=== PATIENT | male | born 1970 | race Caucasian/White ===

== ENCOUNTER 2016-12-21 13:10 | Emergency (ER) | payer MEDICAID ==
[~2016-12-21] VITALS: Ht 172.7 cm; Wt 82.0 kg
[2016-12-21 14:04] LABS: CHLORIDE 110 mEq/L (98-107)
[2016-12-21 14:12] LABS: BASOPHILS % 0.6 % (0.0-2.0); EOSINOPHILS % 1.1 % (0.0-5.0); HEMATOCRIT. 38.4 % (42.0-52.0); HEMOGLOBIN. 12.7 g/dL (14.0-18.0); LYMPHOCYTES % 44.2 % (20.0-50.0); MEAN CORPUSCULAR HEMOGLOBIN 26.7 pg (28.0-32.0); MEAN CORPUSCULAR VOLUME 80.8 fL (80.0-94.0); MEAN PLATELET VOLUME 8.5 fl (7.4-10.4); NEUTROPHILS % 46.1 % (40.0-76.0); PLATELET 214 x1000/uL (130-400); RED BLOOD CELL COUNT 4.75 mill/uL (4.7-6.1); RED CELL DISTRIBUTION WIDTH 18.9 % (11.6-14.6)
[2016-12-21 14:13] LABS: CARBON DIOXIDE 24 mEq/L (21-32)
[2016-12-21] MEDS ORDERED: MORPHINE SULFATE 4 MG/ML CPJ (NOT FOR IM USE) IV STA (14:54)
[2016-12-21] MEDS ORDERED: ONDANSETRON HCL 4MG/2ML VIAL IV STA (14:54)
[2016-12-21] MEDS ORDERED: KETOROLAC 30MG/ML VIAL IV STA (14:54)
[2016-12-21] MEDS ORDERED: SODIUM CHLORIDE 0.9% 1,000 ML IV ONE (14:54)
[2016-12-21 15:30] LABS: D-DIMER 0.39 mg/L FEU (<0.50); INR 1.1; PROTHROMBIN TIME 11.4 sec (9.4-11.6)
[2016-12-21 15:38] LABS: CARBON DIOXIDE 24 mEq/L (21-32); CHLORIDE 110 mEq/L (98-107); CREATINE KINASE 147 IU/L (39-308); TROPONIN I < 0.02 ng/mL (0.00-0.04)
[2016-12-21 15:39] LABS: CLARITY URINE CLEAR (CLEAR); COLOR URINE YELLOW (YELLOW); GLUCOSE URINE NEGATIVE (NEGATIVE); KETONES URINE NEGATIVE (NEGATIVE); LEUKOCYTE ESTERASE URINE NEGATIVE (NEGATIVE); NITRITE URINE NEGATIVE (NEGATIVE); OCCULT BLOOD URINE NEGATIVE (NEGATIVE); PROTEIN URINE NEGATIVE (NEGATIVE); SPECIFIC GRAVITY URINE 1.008 (1.005-1.030); UROBILINOGEN URINE 0.2 E.U./dL (0.2-1.0)
[2016-12-21 15:49] LABS: ETHANOL BLOOD 368 mg/dL
[2016-12-21 15:50] LABS: *AMPHETAMINES SCREEN URINE NEGATIVE (NEGATIVE); *BARBITURATES SCREEN URINE NEGATIVE (NEGATIVE); *BENZODIAZEPINES SCREEN URINE NEGATIVE (NEGATIVE); *COCAINE SCREEN URINE NEGATIVE (NEGATIVE); CANNABINOID URINE SCREEN NEGATIVE (NEGATIVE); METHADONE URINE SCREEN NEGATIVE (NEGATIVE); OPIATES URINE SCREEN NEGATIVE (NEGATIVE); PHENCYCLIDINE URINE SCREEN NEGATIVE (NEGATIVE)
[2016-12-22 13:56] VITALS: BP 120/82
== END 2016-12-22 14:35 | disposition home or self-care (01) ==
LOC: EDBD 13:10 → ER 13:10
DX: G93.40 Encephalopathy, unspecified (principal); T51.91XA Toxic effect of unspecified alcohol, accidental (unintentional), initial encounter; S09.90XA Unspecified injury of head, initial encounter; Y08.89XA Assault by other specified means, initial encounter; Y93.89 Activity, other specified; Y99.8 Other external cause status; Y92.89 Other specified places as the place of occurrence of the external cause
CPT/HCPCS: 36415; 70450; 71010; 72125; 80053; 80305; 81003; 82550; 82962; 83605; 83880; 84443; 84484; 85025; 85379; 85610; 93005; 96361; 96374; 96375; 99285; G0482; J1885; J2405; J7030; Z7610; J2270

== ENCOUNTER 2017-01-16 18:26 | Inpatient (IN) | payer MEDICAID ==
[~2017-01-16] VITALS: Ht 167.6 cm; Wt 89.9 kg
[2017-01-16] MEDS ORDERED: OCTREOTIDE ACETATE 50 MCG/ML 1ML IV STA (19:36)
[2017-01-16] MEDS ORDERED: SODIUM CHLORIDE 0.9% 1,000 ML IV ONE ×2 (19:36→23:16)
[2017-01-16] MEDS ORDERED: PANTOPRAZOLE SODIUM 40 MG/VIAL IV STA (19:36)
[2017-01-16] MEDS ORDERED: ONDANSETRON HCL 4MG/2ML VIAL IV STA (19:36)
[2017-01-16] MEDS ORDERED: MORPHINE SULFATE 4 MG/ML CPJ (NOT FOR IM USE) IV STA (19:36)
[2017-01-16] MEDS ORDERED: PANTOPRAZOLE 80 MG in SODIUM CHLORIDE 0.9% 80 ML IV ONE (19:45)
[2017-01-16] MEDS ORDERED: OCTREOTIDE 1,000 MCG in SODIUM CHLORIDE 0.9% 100 ML IV ONE (19:45)
[2017-01-16] MEDS ORDERED: PANTOPRAZOLE SODIUM 40 MG/VIAL IV ONE (20:02)
[2017-01-16] MEDS ORDERED: OCTREOTIDE 1,000 MCG in SODIUM CHLORIDE 0.9% 100 ML IV NR (20:30)
[2017-01-16 20:41] LABS: BASOPHILS % 0.6 % (0.0-2.0); HEMATOCRIT. 23.2 % (42.0-52.0); HEMOGLOBIN. 7.6 g/dL (14.0-18.0); LYMPHOCYTES % 23.3 % (20.0-50.0); MEAN CORPUSCULAR HEMOGLOBIN 27.1 pg (28.0-32.0); MEAN CORPUSCULAR VOLUME 82.9 fL (80.0-94.0); MEAN PLATELET VOLUME 9.6 fl (7.4-10.4); MONOCYTES % 10.2 % (2.0-8.0); NEUTROPHILS % 65.9 % (40.0-76.0); PLATELET 55 x1000/uL (130-400); RED CELL DISTRIBUTION WIDTH 22.1 % (11.6-14.6)
[2017-01-16 20:48] LABS: INR 1.3; PROTHROMBIN TIME 13.4 sec (9.4-11.6)
[2017-01-16 20:52] LABS: CARBON DIOXIDE 25 mEq/L (21-32); CHLORIDE 100 mEq/L (98-107); ETHANOL BLOOD < 10 mg/dL
[2017-01-16 20:56] LABS: CREATINE KINASE 259 IU/L (39-308); TROPONIN I 0.02 ng/mL (0.00-0.04)
[2017-01-16 21:01] LABS: AMMONIA 83 uMol/L (<32)
[2017-01-16 21:16] LABS: PLATELET ESTIMATE MARKEDLY DECREASED
[2017-01-16] MEDS ORDERED: FOLIC ACID 1 MG, THIAMINE HCL 100 MG, MVI, ADULT NO.1 10 ML in DEXTROSE 5% WATER 1,000 ML IV ONE ×4 (22:15)
[2017-01-16] MEDS ORDERED: IPRATROPIUM/ALBUTEROL 0.5-3(2.5)MG/3ML NEB INH PRN (22:46)
[2017-01-16] MEDS ORDERED: METOCLOPRAMIDE HCL 10MG/2ML VIAL IV ONE (23:00)
[2017-01-16] MEDS: LORAZEPAM 2MG/ML CPJ IV PRN (23:17)
[2017-01-17] VITALS (25 sets, daily range): BP systolic 91–126; BP diastolic 52–82
[2017-01-17 00:30] LABS: MEAN CORPUSCULAR HEMOGLOBIN 27.2 pg (28.0-32.0); MEAN CORPUSCULAR VOLUME 82.8 fL (80.0-94.0); RED BLOOD CELL COUNT 2.47 mill/uL (4.7-6.1); RED CELL DISTRIBUTION WIDTH 20.3 % (11.6-14.6)
[2017-01-17 00:36] LABS: HEMATOCRIT. 20.5 % (42.0-52.0); HEMOGLOBIN. 6.7 g/dL (14.0-18.0)
[2017-01-17 00:37] LABS: PLATELET 50 x1000/uL (130-400)
[2017-01-17] MEDS: ONDANSETRON HCL 4MG/2ML VIAL IV PRN ×2 (01:58→08:05)
[2017-01-17 02:07] LABS: CLARITY URINE CLOUDY (CLEAR); COLOR URINE DARK YELLOW (YELLOW); GLUCOSE URINE TRACE (NEGATIVE); KETONES URINE 1+ (NEGATIVE); LEUKOCYTE ESTERASE URINE TRACE (NEGATIVE); NITRITE URINE POSITIVE (NEGATIVE); OCCULT BLOOD URINE 1+ (NEGATIVE); PROTEIN URINE 1+ (NEGATIVE); SPECIFIC GRAVITY URINE 1.032 (1.005-1.030)
[2017-01-17 02:40] LABS: *AMPHETAMINES SCREEN URINE NEGATIVE (NEGATIVE); *BARBITURATES SCREEN URINE NEGATIVE (NEGATIVE); *BENZODIAZEPINES SCREEN URINE NEGATIVE (NEGATIVE); *COCAINE SCREEN URINE NEGATIVE (NEGATIVE); CANNABINOID URINE SCREEN NEGATIVE (NEGATIVE); METHADONE URINE SCREEN NEGATIVE (NEGATIVE); OPIATES URINE SCREEN PRESUMTIVE POSITIVE (NEGATIVE); PHENCYCLIDINE URINE SCREEN NEGATIVE (NEGATIVE)
[2017-01-17] MEDS ORDERED: FOLIC ACID 1 MG, THIAMINE HCL 100 MG, MVI, ADULT NO.1 10 ML in DEXTROSE 5% WATER 1,000 ML IV NR ×4 (02:45)
[2017-01-17 05:44] LABS: BASOPHILS % 0.1 % (0.0-2.0); HEMATOCRIT. 23.2 % (42.0-52.0); HEMOGLOBIN. 7.7 g/dL (14.0-18.0); LYMPHOCYTES % 10.9 % (20.0-50.0); MEAN CORPUSCULAR HEMOGLOBIN 27.5 pg (28.0-32.0); MEAN CORPUSCULAR VOLUME 83.3 fL (80.0-94.0); MEAN PLATELET VOLUME 9.8 fl (7.4-10.4); MONOCYTES % 9.1 % (2.0-8.0); NEUTROPHILS % 79.9 % (40.0-76.0); RED BLOOD CELL COUNT 2.78 mill/uL (4.7-6.1); RED CELL DISTRIBUTION WIDTH 18.8 % (11.6-14.6)
[2017-01-17 05:52] LABS: PLATELET 43 x1000/uL (130-400)
[2017-01-17 06:08] LABS: CARBON DIOXIDE 25 mEq/L (21-32); CHLORIDE 104 mEq/L (98-107); CREATINE KINASE 167 IU/L (39-308); HDL CHOLESTEROL 51 mg/dL (40-59); LDL CHOLESTEROL 52 mg/dL (5-100); TROPONIN I 0.15 ng/mL (0.00-0.04)
[2017-01-17 06:10] LABS: CREATINE KINASE MB FRACTION 2.3 ng/mL (0.5-3.6)
[2017-01-17 06:50] LABS: PLATELET ESTIMATE DECREASED
[2017-01-17] MEDS ORDERED: PANTOPRAZOLE 80 MG in SODIUM CHLORIDE 0.9% 100 ML IV SCH (07:52)
[2017-01-17] MEDS: LORAZEPAM 2MG/ML CPJ IV PRN (08:05)
[2017-01-17] MEDS: PANTOPRAZOLE 80 MG in SODIUM CHLORIDE 0.9% 100 ML IV SCH ×2 (09:27→20:51)
[2017-01-17] MEDS: SODIUM CHLORIDE 0.9% 1,000 ML IV SCH (09:28)
[2017-01-17 12:54] LABS: HEMATOCRIT 23.8 % (42.0-52.0); HEMOGLOBIN 7.7 g/dL (14.0-18.0)
[2017-01-17] MEDS ORDERED: DEXTROSE 50% WATER 50ML SYRINGE IV PRN (13:00)
[2017-01-17] MEDS ORDERED: BLOOD SUGAR DIAGNOSTIC STRIP TEST SCH (13:00)
[2017-01-17 13:26] LABS: HEPATITIS B SURFACE ANTIGEN NEGATIVE
[2017-01-17] MEDS ORDERED: SODIUM CHLORIDE 0.9% 10ML VIAL ONE (13:51)
[2017-01-17] MEDS ORDERED: SIMETHICONE 40 MG/0.6 ML 30ML ONE (13:51)
[2017-01-17 13:54] LABS: HEPATITIS B CORE AB IGM NEGATIVE
[2017-01-17 13:56] LABS: HEPATITIS A AB IGM NEGATIVE (NEGATIVE)
[2017-01-17] MEDS ORDERED: OCTREOTIDE 1,000 MCG in SODIUM CHLORIDE 0.9% 100 ML IV SCH (14:00)
[2017-01-17] MEDS: OCTREOTIDE 1,000 MCG in SODIUM CHLORIDE 0.9% 98 ML IV SCH (14:00)
[2017-01-17 15:19] LABS: BASOPHILS % 0.2 % (0.0-2.0); HEMATOCRIT. 21.5 % (42.0-52.0); HEMOGLOBIN. 7.2 g/dL (14.0-18.0); LYMPHOCYTES % 18.2 % (20.0-50.0); MEAN CORPUSCULAR HEMOGLOBIN 27.8 pg (28.0-32.0); MEAN CORPUSCULAR VOLUME 83.4 fL (80.0-94.0); MEAN PLATELET VOLUME 10.8 fl (7.4-10.4); MONOCYTES % 12.1 % (2.0-8.0); NEUTROPHILS % 69.5 % (40.0-76.0); RED BLOOD CELL COUNT 2.58 mill/uL (4.7-6.1); RED CELL DISTRIBUTION WIDTH 19.2 % (11.6-14.6)
[2017-01-17 15:20] LABS: INR 1.5; PARTIAL THROMBOPLASTIN TIME 23.6 sec (23.4-31.0); PROTHROMBIN TIME 15.9 sec (9.4-11.6)
[2017-01-17 15:36] LABS: AMMONIA 39 uMol/L (<32)
[2017-01-17 15:41] LABS: TROPONIN I 0.11 ng/mL (0.00-0.04)
[2017-01-17] MEDS ORDERED: FENTANYL CITRATE/PF 50MCG/ML 2ML VIAL ONE (16:34)
[2017-01-17] MEDS ORDERED: MIDAZOLAM HCL 5 MG/5 ML VIAL ONE (16:34)
[2017-01-17 16:37] LABS: PLATELET 47 x1000/uL (130-400)
[2017-01-17] MEDS ORDERED: INSULIN LISPRO 100 UNITS/ML SUBCUT SCH (17:00)
[2017-01-17] MEDS ORDERED: MIDAZOLAM HCL 5 MG/5 ML VIAL IV PRN (17:54)
[2017-01-17] MEDS ORDERED: FENTANYL CITRATE/PF 50MCG/ML 2ML VIAL IV PRN (17:54)
[2017-01-17] MEDS: BLOOD SUGAR DIAGNOSTIC STRIP TEST SCH (19:15)
[2017-01-17] MEDS: INSULIN LISPRO 100 UNITS/ML SUBCUT SCH (19:22)
[2017-01-17] MEDS: CHLORDIAZEPOXIDE 25MG CAPSULE PO SCH ×2 (19:33→22:00)
[2017-01-17] MEDS: THIAMINE HCL 100MG TABLET PO SCH (19:33)
[2017-01-17] MEDS: MORPHINE SULFATE 4 MG/ML CPJ (NOT FOR IM USE) IV PRN (20:11)
[2017-01-18] VITALS (83 sets, daily range): BP systolic 88–126; BP diastolic 54–88
[2017-01-18] MEDS: SODIUM CHLORIDE 0.9% 1,000 ML IV SCH ×2 (00:26→11:58)
[2017-01-18] MEDS: CYANOCOBALAMIN/FA/PYRIDOXINE TABLET PO SCH ×2 (00:26→07:59)
[2017-01-18 00:37] LABS: HEMATOCRIT 20.3 % (42.0-52.0); HEMOGLOBIN 6.8 g/dL (14.0-18.0)
[2017-01-18] MEDS: BLOOD SUGAR DIAGNOSTIC STRIP TEST SCH ×4 (00:45→17:17)
[2017-01-18] MEDS: ONDANSETRON HCL 4MG/2ML VIAL IV PRN (01:33)
[2017-01-18] MEDS: MORPHINE SULFATE 4 MG/ML CPJ (NOT FOR IM USE) IV PRN ×2 (04:46→17:51)
[2017-01-18] MEDS: PANTOPRAZOLE 80 MG in SODIUM CHLORIDE 0.9% 100 ML IV SCH (04:47)
[2017-01-18] MEDS: CHLORDIAZEPOXIDE 25MG CAPSULE PO SCH ×3 (05:48→21:09)
[2017-01-18] MEDS: INSULIN LISPRO 100 UNITS/ML SUBCUT SCH ×4 (05:49→17:17)
[2017-01-18] MEDS: THIAMINE HCL 100MG TABLET PO SCH (07:59)
[2017-01-18] MEDS ORDERED: INFLUENZA VIRUS VACCINE 0.5ML SYR IM ONE (08:00)
[2017-01-18] MEDS ORDERED: PNEUMOCOCCAL 23-VAL P-SAC VAC 0.5 ML IM ONE (08:00)
[2017-01-18 08:16] LABS: BASOPHILS % 0.6 % (0.0-2.0); EOSINOPHILS % 1.1 % (0.0-5.0); HEMATOCRIT. 24.2 % (42.0-52.0); HEMOGLOBIN. 8.2 g/dL (14.0-18.0); LYMPHOCYTES % 26.5 % (20.0-50.0); MEAN CORPUSCULAR HEMOGLOBIN 28.6 pg (28.0-32.0); MEAN CORPUSCULAR VOLUME 84.8 fL (80.0-94.0); MEAN PLATELET VOLUME 10.4 fl (7.4-10.4); MONOCYTES % 8.7 % (2.0-8.0); NEUTROPHILS % 63.1 % (40.0-76.0); RED BLOOD CELL COUNT 2.86 mill/uL (4.7-6.1)
[2017-01-18 08:20] LABS: PLATELET 42 x1000/uL (130-400)
[2017-01-18 09:06] LABS: CARBON DIOXIDE 28 mEq/L (21-32); CHLORIDE 104 mEq/L (98-107)
[2017-01-18] MEDS: OCTREOTIDE 1,000 MCG in SODIUM CHLORIDE 0.9% 98 ML IV SCH (11:23)
[2017-01-18] MEDS: PANTOPRAZOLE 40MG DR TABLET PO SCH ×2 (12:21→21:08)
[2017-01-18] MEDS: PROPRANOLOL HCL 10MG TABLET PO SCH (13:06)
[2017-01-19] VITALS: BP 118/62
[2017-01-19] MEDS: BLOOD SUGAR DIAGNOSTIC STRIP TEST SCH ×3 (00:38→12:12)
[2017-01-19] MEDS: LORAZEPAM 2MG/ML CPJ IV PRN (00:50)
[2017-01-19 04:00] VITALS: BP 97/67
[2017-01-19] MEDS: INSULIN LISPRO 100 UNITS/ML SUBCUT SCH ×3 (06:00→12:00)
[2017-01-19] MEDS: CHLORDIAZEPOXIDE 25MG CAPSULE PO SCH ×2 (06:01→15:08)
[2017-01-19] MEDS: SODIUM CHLORIDE 0.9% 1,000 ML IV SCH (06:03)
[2017-01-19] MEDS: PANTOPRAZOLE 40MG DR TABLET PO SCH (06:24)
[2017-01-19 06:29] LABS: BASOPHILS % 0.6 % (0.0-2.0); EOSINOPHILS % 2.9 % (0.0-5.0); HEMATOCRIT. 25.3 % (42.0-52.0); HEMOGLOBIN. 8.4 g/dL (14.0-18.0); LYMPHOCYTES % 29.8 % (20.0-50.0); MEAN CORPUSCULAR HEMOGLOBIN 28.5 pg (28.0-32.0); MEAN PLATELET VOLUME 10.3 fl (7.4-10.4); MONOCYTES % 8.9 % (2.0-8.0); NEUTROPHILS % 57.8 % (40.0-76.0); PLATELET 52 x1000/uL (130-400); RED BLOOD CELL COUNT 2.94 mill/uL (4.7-6.1); RED CELL DISTRIBUTION WIDTH 18.3 % (11.6-14.6)
[2017-01-19 08:00] VITALS: BP 120/70
[2017-01-19 08:34] LABS: CARBON DIOXIDE 27 mEq/L (21-32); CHLORIDE 104 mEq/L (98-107)
[2017-01-19] MEDS: CYANOCOBALAMIN/FA/PYRIDOXINE TABLET PO SCH (08:45)
[2017-01-19] MEDS: PROPRANOLOL HCL 10MG TABLET PO SCH (08:45)
[2017-01-19] MEDS: THIAMINE HCL 100MG TABLET PO SCH (08:46)
[2017-01-19] MEDS ORDERED: LORAZEPAM 1MG TABLET PO PRN (10:45)
[2017-01-19 12:00] VITALS: BP 94/64
[2017-01-19] MEDS ORDERED: POTASSIUM CHLORIDE 20MEQ TABLET SR PO NR (14:45)
[2017-01-19 15:36] VITALS: BP 99/64
[2017-01-19 16:00] VITALS: BP 95/61
== END 2017-01-19 16:15 | disposition home or self-care (01) | DRG 280 ==
LOC: ER 18:26 → MICUSO 21:55 → EDBEDREQ 21:57 → EDBEDREQSVC 21:57 → EDBEDREQTM 21:57 → ENRESERV 01-17 06:56 → CANRESERV 01-17 06:56 → ENRESERV 01-17 07:04 → 6EST 01-18 22:10
PROVIDERS: ADMIT Internal Medicine; ATTEND Internal Medicine
PROC: 30233N1 Transfusion of Nonautologous Red Blood Cells into Peripheral Vein, Percutaneous Approach (ICD-10-PCS; principal; 2017-01-16)
PROC: 0DJ68ZZ Inspection of Stomach, Via Natural or Artificial Opening Endoscopic (ICD-10-PCS; 2017-01-17)
PROC: 30233N1 Transfusion of Nonautologous Red Blood Cells into Peripheral Vein, Percutaneous Approach (ICD-10-PCS; 2017-01-17)
PROC: 30233N1 Transfusion of Nonautologous Red Blood Cells into Peripheral Vein, Percutaneous Approach (ICD-10-PCS; 2017-01-18)
DX: K70.30 Alcoholic cirrhosis of liver without ascites (principal); I85.01 Esophageal varices with bleeding; K76.6 Portal hypertension; D69.59 Other secondary thrombocytopenia; D62 Acute posthemorrhagic anemia; E44.1 Mild protein-calorie malnutrition; E88.09 Other disorders of plasma-protein metabolism, not elsewhere classified; N28.1 Cyst of kidney, acquired; F17.210 Nicotine dependence, cigarettes, uncomplicated; E87.6 Hypokalemia; R07.89 Other chest pain; Y90.0 Blood alcohol level of less than 20 mg/100 ml; K31.9 Disease of stomach and duodenum, unspecified; I10 Essential (primary) hypertension; K44.9 Diaphragmatic hernia without obstruction or gangrene; F10.188 Alcohol abuse with other alcohol-induced disorder; R74.0 Nonspecific elevation of levels of transaminase and lactic acid dehydrogenase [LDH]; Z59.0 Homelessness
CPT/HCPCS: 36415; 71010; 76700; 80048; 80053; 80061; 80305; 81001; 82140; 82248; 82550; 82553; 82962; 83036; 83605; 83690; 83735; 83880; 84443; 84484; 85014; 85018; 85025; 85610; 85730; 86705; 86709; 86803; 86850; 86900; 86920; 87340; 90686; 90732; 93005; 93306; 93970; 96361; 96365; 96367; 96372; 96375; 99291; A4216; A6261; C9113; G0482; J1815; J2060; J2250; J2270; J2354; J2405; J2765; J3010; J3411; J3490; J7030; J7050; J7070; P9016

== ENCOUNTER 2017-02-15 00:03 | Emergency (ER) | payer MEDICAID ==
[~2017-02-15] VITALS: Ht 172.7 cm; Wt 77.1 kg
[2017-02-15] MEDS ORDERED: MORPHINE SULFATE 4 MG/ML CPJ (NOT FOR IM USE) IV STA (00:42)
[2017-02-15] MEDS ORDERED: SODIUM CHLORIDE 0.9% 1,000 ML IV ONE (00:42)
[2017-02-15] MEDS ORDERED: ONDANSETRON HCL 4MG/2ML VIAL IV STA (00:42)
[2017-02-15 01:21] LABS: BASOPHILS % 0.9 % (0.0-2.0); EOSINOPHILS % 0.2 % (0.0-5.0); HEMOGLOBIN. 8.5 g/dL (14.0-18.0); LYMPHOCYTES % 18.6 % (20.0-50.0); MEAN CORPUSCULAR HEMOGLOBIN 26.3 pg (28.0-32.0); MEAN CORPUSCULAR VOLUME 80.2 fL (80.0-94.0); MEAN PLATELET VOLUME 8.4 fl (7.4-10.4); MONOCYTES % 14.3 % (2.0-8.0); PLATELET 101 x1000/uL (130-400); RED BLOOD CELL COUNT 3.24 mill/uL (4.7-6.1); RED CELL DISTRIBUTION WIDTH 19.9 % (11.6-14.6)
[2017-02-15 01:32] LABS: INR 1.2; PROTHROMBIN TIME 12.6 sec (9.4-11.6)
[2017-02-15 02:15] VITALS: BP 150/98
[2017-02-15 02:19] LABS: CARBON DIOXIDE 24 mEq/L (21-32); CHLORIDE 101 mEq/L (98-107)
[2017-02-15 02:58] LABS: CLARITY URINE CLEAR (CLEAR); COLOR URINE YELLOW (YELLOW); GLUCOSE URINE NEGATIVE (NEGATIVE); KETONES URINE NEGATIVE (NEGATIVE); LEUKOCYTE ESTERASE URINE NEGATIVE (NEGATIVE); NITRITE URINE NEGATIVE (NEGATIVE); OCCULT BLOOD URINE NEGATIVE (NEGATIVE); PROTEIN URINE NEGATIVE (NEGATIVE); SPECIFIC GRAVITY URINE 1.008 (1.005-1.030)
[2017-02-15] MEDS ORDERED: POTASSIUM BICARB/CIT ACID 25 MEQ TABLET.EFF PO NR (03:00)
== END 2017-02-15 04:01 | disposition left against medical advice (07) ==
LOC: ER 00:03
DX: R10.32 Left lower quadrant pain (principal); E87.6 Hypokalemia; F17.210 Nicotine dependence, cigarettes, uncomplicated; F12.10 Cannabis abuse, uncomplicated; Z87.19 Personal history of other diseases of the digestive system
CPT/HCPCS: 36415; 80053; 81003; 83690; 85025; 85610; 96361; 96374; 96375; 99285; J2270; J2405; J7030; Z7610

== ENCOUNTER 2017-03-04 21:20 | Emergency (ER) | payer MEDICAID ==
[~2017-03-04] VITALS: Ht 172.7 cm; Wt 79.0 kg
[2017-03-05] MEDS ORDERED: FOLIC ACID 1 MG, THIAMINE HCL 100 MG, MVI, ADULT NO.1 10 ML in DEXTROSE 5% WATER 1,000 ML IV ONE ×4 (04:00)
[2017-03-05 04:11] LABS: BASOPHILS % 1.4 % (0.0-2.0); EOSINOPHILS % 1.5 % (0.0-5.0); HEMOGLOBIN. 8.4 g/dL (14.0-18.0); MEAN CORPUSCULAR HEMOGLOBIN 24.1 pg (28.0-32.0); MEAN CORPUSCULAR VOLUME 77.6 fL (80.0-94.0); MEAN PLATELET VOLUME 7.8 fl (7.4-10.4); MONOCYTES % 8.2 % (2.0-8.0); NEUTROPHILS % 32.9 % (40.0-76.0); PLATELET 164 x1000/uL (130-400); RED BLOOD CELL COUNT 3.48 mill/uL (4.7-6.1); RED CELL DISTRIBUTION WIDTH 20.2 % (11.6-14.6)
[2017-03-05 04:25] LABS: CLARITY URINE CLEAR (CLEAR); COLOR URINE YELLOW (YELLOW); GLUCOSE URINE NEGATIVE (NEGATIVE); KETONES URINE NEGATIVE (NEGATIVE); LEUKOCYTE ESTERASE URINE NEGATIVE (NEGATIVE); NITRITE URINE NEGATIVE (NEGATIVE); OCCULT BLOOD URINE NEGATIVE (NEGATIVE); PROTEIN URINE NEGATIVE (NEGATIVE); SPECIFIC GRAVITY URINE 1.009 (1.005-1.030); UROBILINOGEN URINE 0.2 E.U./dL (0.2-1.0)
[2017-03-05 04:26] LABS: CARBON DIOXIDE 24 mEq/L (21-32); CHLORIDE 111 mEq/L (98-107)
[2017-03-05 04:35] LABS: *AMPHETAMINES SCREEN URINE NEGATIVE (NEGATIVE); *BARBITURATES SCREEN URINE NEGATIVE (NEGATIVE); *BENZODIAZEPINES SCREEN URINE NEGATIVE (NEGATIVE); *COCAINE SCREEN URINE NEGATIVE (NEGATIVE); CANNABINOID URINE SCREEN NEGATIVE (NEGATIVE); METHADONE URINE SCREEN NEGATIVE (NEGATIVE); OPIATES URINE SCREEN NEGATIVE (NEGATIVE); PHENCYCLIDINE URINE SCREEN NEGATIVE (NEGATIVE)
[2017-03-05] MEDS ORDERED: THIAMINE HCL 100 MG, MVI, ADULT NO.1 10 ML in DEXTROSE 5% WATER 1,000 ML IV SCH ×3 (04:45)
[2017-03-05 04:50] LABS: ETHANOL BLOOD 355 mg/dL
[2017-03-05] MEDS ORDERED: ONDANSETRON HCL 4MG/2ML VIAL IV ONE (06:30)
[2017-03-05] MEDS ORDERED: KETOROLAC 30MG/ML VIAL IV ONE (06:30)
[2017-03-05 12:58] VITALS: BP 136/88
== END 2017-03-05 13:32 | disposition home or self-care (01) ==
LOC: ER 21:50
DX: K85.90 Acute pancreatitis without necrosis or infection, unspecified (principal); K74.60 Unspecified cirrhosis of liver; K29.70 Gastritis, unspecified, without bleeding; D64.9 Anemia, unspecified; F10.129 Alcohol abuse with intoxication, unspecified; Y90.8 Blood alcohol level of 240 mg/100 ml or more
CPT/HCPCS: 36415; 80053; 80305; 81003; 83690; 85025; 96365; 96366; 96375; 99285; G0482; J1885; J2405; J3411; J3490; J7070; Z7610